=== PATIENT | female | born 1975 ===

== ENCOUNTER → 2018-06-03 | Outpatient (CLI) | payer OTHER | END | disposition home or self-care (01) | LOC: SONOGRAMA 14:53 | DX: R10.84 Generalized abdominal pain (principal) ==

== ENCOUNTER 2019-09-05 16:00 | Outpatient (CLI) | payer OTHER | END 2019-09-05 16:05 | disposition home or self-care (01) | LOC: RAD 16:00 | DX: Z01.811 Encounter for preprocedural respiratory examination (principal) ==

== ENCOUNTER 2019-09-06 08:25 | Outpatient (CLI) | payer OTHER | END 2019-09-06 08:28 | disposition home or self-care (01) | LOC: LAB 08:25 | DX: Z00.00 Encounter for general adult medical examination without abnormal findings (principal) ==

== ENCOUNTER 2019-12-26 09:11 | Outpatient (CLI) | payer OTHER | END 2019-12-26 09:14 | disposition home or self-care (01) | LOC: NUCLEAR 09:11 | PROVIDERS: ATTEND Internal Medicine | DX: M79.662 Pain in left lower leg (principal) ==

== ENCOUNTER → 2020-02-27 | Outpatient (CLI) | payer OTHER | END | disposition home or self-care (01) | LOC: MAMO-SONO 09:45 | DX: Z12.31 Encounter for screening mammogram for malignant neoplasm of breast (principal) ==

== ENCOUNTER 2020-05-23 17:21 | Emergency (ER) | payer OTHER ==
[~2020-05-23] VITALS: Ht 160 cm; Wt 59.0 kg
== END 2020-05-23 19:23 | disposition home or self-care (01) ==
LOC: ER 17:21
DX: B34.9 Viral infection, unspecified (principal); Z03.818 Encounter for observation for suspected exposure to other biological agents ruled out

== ENCOUNTER 2020-06-11 10:05 | Outpatient (CLI) | payer OTHER | END 2020-06-11 14:24 | disposition home or self-care (01) | LOC: LAB 10:05 | DX: Z20.828 Contact with and (suspected) exposure to other viral communicable diseases (principal) ==

== ENCOUNTER → 2020-09-24 | Outpatient (CLI) | payer OTHER | END | disposition home or self-care (01) | LOC: SONOGRAMA 08:02 | PROVIDERS: ATTEND Internal Medicine Gastroenterology | DX: R16.0 Hepatomegaly, not elsewhere classified (principal); E04.8 Other specified nontoxic goiter; E04.1 Nontoxic single thyroid nodule ==

== ENCOUNTER 2020-10-15 07:36 | Outpatient (CLI) | payer OTHER | END 2020-10-15 07:42 | disposition home or self-care (01) | LOC: LAB 07:36 | PROVIDERS: ATTEND Internal Medicine Gastroenterology | DX: R03.1 Nonspecific low blood-pressure reading (principal); E55.9 Vitamin D deficiency, unspecified ==

== ENCOUNTER 2020-10-18 13:26 | Outpatient (CLI) | payer OTHER | END 2020-10-18 15:00 | disposition home or self-care (01) | LOC: LAB 13:26 | PROVIDERS: ATTEND Internal Medicine | DX: R50.9 Fever, unspecified (principal); Z20.828 Contact with and (suspected) exposure to other viral communicable diseases ==

== ENCOUNTER 2021-02-22 10:20 | Outpatient (CLI) | payer OTHER | END 2021-02-22 15:00 | disposition home or self-care (01) | LOC: LAB 10:20 | PROVIDERS: ATTEND Emergency Medicine Pediatric Emergency Medicine | DX: Z03.818 Encounter for observation for suspected exposure to other biological agents ruled out (principal) ==

== ENCOUNTER 2021-04-01 15:45 | Outpatient (CLI) | payer OTHER | END 2021-04-01 16:00 | disposition home or self-care (01) | LOC: PPH VACUNA 15:45 | PROVIDERS: ATTEND Emergency Medicine Pediatric Emergency Medicine | DX: Z23 Encounter for immunization (principal) ==

== ENCOUNTER 2021-04-21 12:59 | Outpatient (CLI) | payer OTHER | END 2021-04-21 14:33 | disposition home or self-care (01) | LOC: MAMO-SONO 12:59 | DX: N64.89 Other specified disorders of breast (principal); Z12.31 Encounter for screening mammogram for malignant neoplasm of breast ==

== ENCOUNTER 2021-09-22 21:26 | Emergency (ER) | payer OTHER ==
[~2021-09-22] VITALS: Ht 160 cm; Wt 59.0 kg
== END 2021-09-22 22:52 | disposition home or self-care (01) ==
LOC: ER 21:26
DX: U07.1 COVID-19 (principal); Z20.822 Contact with and (suspected) exposure to COVID-19

== ENCOUNTER 2021-09-23 08:33 | Outpatient (CLI) | payer OTHER | END 2021-09-23 09:10 | disposition home or self-care (01) | LOC: ASH CLINIC 08:33 | PROVIDERS: ATTEND Emergency Medicine | DX: U07.1 COVID-19 (principal); Z23 Encounter for immunization ==

== ENCOUNTER 2022-03-15 13:30 | Outpatient (CLI) | payer OTHER | END 2022-03-15 13:35 | disposition home or self-care (01) | LOC: PPH VACUNA 13:30 | PROVIDERS: ATTEND Emergency Medicine Pediatric Emergency Medicine | DX: Z23 Encounter for immunization (principal) ==

== ENCOUNTER 2022-03-15 14:33 | Outpatient (CLI) | payer OTHER | END 2022-03-15 14:43 | disposition home or self-care (01) | LOC: PPH VACUNA 14:33 | PROVIDERS: ATTEND Emergency Medicine Pediatric Emergency Medicine | DX: Z23 Encounter for immunization (principal) ==

== ENCOUNTER 2022-04-26 08:25 | Outpatient (CLI) | payer OTHER | END 2022-04-26 09:53 | disposition home or self-care (01) | LOC: MAMO-SONO 08:25 | PROVIDERS: ATTEND Radiology Diagnostic Radiology | DX: Z12.31 Encounter for screening mammogram for malignant neoplasm of breast (principal); N60.11 Diffuse cystic mastopathy of right breast ==

== ENCOUNTER → 2022-05-17 12:20 | Outpatient (CLI) | payer OTHER | END | disposition home or self-care (01) | LOC: RAD 12:20 → LAB 12:20 | DX: Z01.818 Encounter for other preprocedural examination (principal) ==

== ENCOUNTER 2022-09-26 13:00 | Outpatient (CLI) | payer OTHER | END 2022-09-26 13:15 | disposition home or self-care (01) | LOC: SONOGRAMA 13:00 | DX: N92.0 Excessive and frequent menstruation with regular cycle (principal); R10.2 Pelvic and perineal pain ==

== ENCOUNTER 2022-11-24 14:34 | Outpatient (CLI) | payer OTHER | END 2022-11-24 14:40 | disposition home or self-care (01) | LOC: SONOGRAMA 14:34 | PROVIDERS: ATTEND Obstetrics & Gynecology | DX: R10.2 Pelvic and perineal pain (principal); N83.209 Unspecified ovarian cyst, unspecified side ==

== ENCOUNTER 2023-04-18 11:30 | Outpatient (CLI) | payer OTHER | END 2023-04-18 11:40 | disposition home or self-care (01) | LOC: PPH VACUNA 11:30 | PROVIDERS: ATTEND Emergency Medicine Pediatric Emergency Medicine | DX: Z23 Encounter for immunization (principal) | CPT/HCPCS: 90686; G0008 ==

== ENCOUNTER 2023-05-07 09:27 | Outpatient (CLI) | payer OTHER | END 2023-05-07 09:37 | disposition home or self-care (01) | LOC: MAMO-SONO 09:27 | PROVIDERS: ATTEND Internal Medicine | DX: Z12.31 Encounter for screening mammogram for malignant neoplasm of breast (principal); Z12.39 Encounter for other screening for malignant neoplasm of breast; N60.11 Diffuse cystic mastopathy of right breast; N60.12 Diffuse cystic mastopathy of left breast ==

== ENCOUNTER 2024-05-28 09:23 | Outpatient (CLI) | payer OTHER | END 2024-05-28 09:37 | disposition home or self-care (01) | LOC: MAMO-SONO 09:23 | PROVIDERS: ATTEND Radiology Diagnostic Radiology | DX: Z12.31 Encounter for screening mammogram for malignant neoplasm of breast (principal); N60.11 Diffuse cystic mastopathy of right breast ==